=== PATIENT | male | born 1990 | race Two or more races ===

== ENCOUNTER 2022-03-24 08:14 | Emergency (ER) | payer SELFPAY ==
[~2022-03-24] VITALS: Ht 182.9 cm; Wt 79.5 kg
--- NOTE | 2022-03-24 08:30 | ED.ADGEN ---
Past Medical History Smoking Status: Unknown if ever smoked Alcohol Use: Heavy Additional Information: pt smells of etoh Social History Narrative: unknown General Adult EDM: Chief Complaint: ALCOHOL INTOXICATION HPI: HPI: Patient is a 21-year-old male who arrives via EMS for reported alcohol intoxication. Patient is a resident at a local hotel and was observed as following people on foot. Police were contacted and evaluated the patient to learn that he had not committed any crime. Subsequently the patient was remanded to paramedics for evaluation and transport. It was reported the patient was significantly intoxicated. The patient was asked if he was depressed or had any thoughts of harming self and he stated very clearly that he loves his life. The patient denies any homicidal ideation. He is however significantly intoxicated without medical complaint otherwise. He is somnolent but does respond to verbal prompting. Review of Systems: Review of Systems: Unable to obtain given the patient's history of alcohol intoxication Allergies: Allergies: Allergies Coded Allergies Type Severity Reaction Last Updated Verified Unable to Assess 03/24/22 No Physical Exam: PE: Constitutional: Intoxicated and somnolent well developed, well nourished, no acute distress, non-toxic appearance. [] HENT: Normocephalic, atraumatic, bilateral external ears normal, oropharynx moist, no oral exudates, nose normal. [] Eyes: PERRLA, EOMI, conjunctiva normal, no discharge. [] Neck: Normal range of motion, no tenderness, supple, no stridor. [] Cardiovascular:Heart rate regular rhythm, no murmur [] Lungs & Thorax: Bilateral breath sounds clear to auscultation [] Abdomen: Bowel sounds normal, soft, no tenderness, no masses, no pulsatile masses. [] Skin: Warm, dry, no erythema, no rash. [] Back: No tenderness, no CVA tenderness. [] Extremities: No tenderness, no cyanosis, no clubbing, ROM intact, no edema. [] Neurologic: Somnolent, intoxicated. Normal motor function, normal sensory function, no focal deficits noted. [] Psychologic: Intoxicated. Affect normal, judgement normal, mood normal. [] Current Patient Data: Vital Signs: Vital Signs Date Time Temp Pulse Resp B/P (MAP) Pulse Ox O2 Delivery O2 Flow Rate FiO2 5/26/22 08:17 97.9 78 14 146/75 (98) 100 Room Air 97.9 EKG: EKG: [] Heart Score: C/O Chest Pain: No Risk Factors: Risk Factors: DM, Current or recent (<one month) smoker, HTN, HLP, family history of CAD, obesity. Risk Scores: Score 0 - 3: 2.5% MACE over next 6 weeks - Discharge Home Score 4 - 6: 20.3% MACE over next 6 weeks - Admit for Clinical Observation Score 7 - 10: 72.7% MACE over next 6 weeks - Early Invasive Strategies Radiology/Procedures: Radiology/Procedures: [] Course & Med Decision Making: Course & Med Decision Making Pertinent Labs and Imaging studies reviewed. (See chart for details). Patient arrived prior to my arrival and was somnolent and responsive only to verbal prompting. The history provided stated the patient was intoxicated from alcohol. The patient has finally awakened and is alert and denies any medical problems. Specifically he denies any suicidal or homicidal ideation. He further states that he has not had any alcohol either today or yesterday. He further denies the use of any other illicit substances and does not manifest any acute toxidrome related to illicit substance use. He states rather that he has not slept in 3 days and he believes his behavior was related to insomnia. He is very steadfast in that he has not had any alcohol and states he does not want to harm anyone in any way. He is neurologically intact and at his neurological baseline. He is stable for discharge [] Ehon Disclaimer: Maria Elena Disclaimer: This electronic medical record was generated, in whole or in part, using a voice recognition dictation system. Departure Departure Impression: Primary Impression: Altered mental state Additional Impression: Insomnia Disposition: 01 HOME / SELF CARE / HOMELESS Condition: STABLE Patient Instructions: Altered Mental Status, Insomnia Problem Qualifiers SAE PA DO March 24, 2022 08:30
[2022-03-24 12:12] VITALS: BP 139/93
== END 2022-03-24 13:20 | disposition home or self-care (01) ==
LOC: EDBD 08:14 → ER 08:14
DX: R41.82 Altered mental status, unspecified (principal); G47.00 Insomnia, unspecified; F10.129 Alcohol abuse with intoxication, unspecified; Y90.9 Presence of alcohol in blood, level not specified
CPT/HCPCS: 99285-25